=== PATIENT | male | born 1980 | race Asian ===

== ENCOUNTER 2020-06-18 18:03 | Emergency (ER) | payer OTHER ==
[~2020-06-18] VITALS: Ht 172.7 cm; Wt 87.0 kg
[2020-06-18 18:10] VITALS: BP 132/84
[2020-06-18] MEDS ORDERED: HYDROcodone/APAP 5/325MG 1 TAB TABLET PO ONE (19:15)
[2020-06-18] MEDS ORDERED: DIPH,PERTUSS(ACELL),TET VAC/PF 0.5 ML SYRINGE. VAX IM ONE (19:15)
[2020-06-18] MEDS ORDERED: LIDOCAINE 1% Multi-Dose 20 ML VIAL. INJ ONE (19:15)
[2020-06-18] MEDS ORDERED: CEPH-264 PO (19:35)
--- NOTE | 2020-06-18 19:35 | PHYS DOC ---
Past Medical History Past Medical History: No Pertinent History (SULEMAN BASS KENNEL AIDE) Past Surgical History: No Surgical History (SULEMAN BASS KENNEL AIDE) Smoking Status: Never Smoker Alcohol Use: None (SULEMAN BASS KENNEL AIDE) General Adult EDM: Chief Complaint: OTHER COMPLAINTS HPI: HPI: Patient is a 40 year old Male who presents with a fish hook in the right dorsal right forearm. This happened this evening when he was casting and the hook came back and went into his arm. It is a 1 barbed hook. Tetanus shot was in 2018. He rates his pain a 5/10. He denies any past medical history. Patient can make a tight fist and has no weakness in the extremity. No numbness or tingling. Radial pulse strong and present. Cap refill less than 2 seconds. Skin pink warm and dry. (SULEMAN BASS KENNEL AIDE) Review of Systems: Review of Systems: Constitutional: Denies fever or chills. [] Eyes: Denies change in visual acuity. [] HENT: Denies nasal congestion or sore throat. [] Respiratory: Denies cough or shortness of breath. [] Cardiovascular: Denies chest pain or edema. [] GI: Denies abdominal pain, nausea, vomiting, bloody stools or diarrhea. [] : Denies dysuria. [] Musculoskeletal: Denies back pain or joint pain. Dorsal right arm. [] Integument: Denies rash. Fish hook in Dorsal right forearm. [] Neurologic: Denies headache, focal weakness or sensory changes. [] Endocrine: Denies polyuria or polydipsia. [] Lymphatic: Denies swollen glands. [] Psychiatric: Denies depression or anxiety. [] (SULEMAN BASS KENNEL AIDE) Heart Score: Risk Factors: Risk Factors: DM, Current or recent (<one month) smoker, HTN, HLP, family history of CAD, obesity. Risk Scores: Score 0 - 3: 2.5% MACE over next 6 weeks - Discharge Home Score 4 - 6: 20.3% MACE over next 6 weeks - Admit for Clinical Observation Score 7 - 10: 72.7% MACE over next 6 weeks - Early Invasive Strategies (SULEMAN BASS KENNEL AIDE) Current Medications: Current Medications Medications (Trade) Dose Ordered Sig/Cristiano Start Time Stop Time Status Last Admin Dose Admin Acetaminophen/ Hydrocodone Bitart (Lortab 5/325) 1 tab 1X ONCE 06/18/20 19:15 06/18/20 19:16 DC 06/18/20 19:13 1 TAB Diphtheria/ Tetanus/Acell Pertussis (ADACEL TDap SYRINGE) 0.5 ml ONCE ONCE 06/18/20 19:15 06/18/20 19:16 DC Lidocaine HCl (Lidocaine 1% 20ml Vial) 20 ml 1X ONCE 06/18/20 19:15 06/18/20 19:16 DC 06/18/20 19:13 20 ML (SULEMAN BASS APRN) Allergies: Allergies: Allergies Coded Allergies Type Severity Reaction Last Updated Verified No Known Drug Allergies 06/18/20 No (SULEMAN BASS APRN) Physical Exam: PE: Constitutional: Well developed, well nourished, no acute distress, non-toxic appearance. [] HENT: Normocephalic, atraumatic, bilateral external ears normal, oropharynx moist, no oral exudates, nose normal. [] Eyes: PERRLA, EOMI, conjunctiva normal, no discharge. [] Neck: Normal range of motion, no tenderness, supple, no stridor. [] Cardiovascular:Heart rate regular rhythm, no murmur [] Lungs & Thorax: Bilateral breath sounds clear to auscultation [] Abdomen: Bowel sounds normal, soft, no tenderness, no masses, no pulsatile masses. [] Skin: Warm, dry, no erythema, no rash. Fish hook in Right forearm. [] Back: No tenderness, no CVA tenderness. [] Extremities: Dorsal right forearm tenderness, no cyanosis, no clubbing, ROM intact, no edema. [] Neurologic: Alert and oriented X 3, normal motor function, normal sensory function, no focal deficits noted. [] Psychologic: Affect normal, judgement normal, mood normal. [] (SULEMAN BASS APRN) Current Patient Data: Vital Signs: Vital Signs Date Time Temp Pulse Resp B/P (MAP) Pulse Ox O2 Delivery O2 Flow Rate FiO2 06/18/20 19:13 14 98 Room Air 06/18/20 18:10 98.7 95 132/84 (100) 98.7 (SULEMAN BASS APRN) EKG: EKG: [] (SULEMAN BASS APRN) Radiology/Procedures: Radiology/Procedures: [] (SULEMAN BASS APRN) Course & Med Decision Making: Course & Med Decision Making Pertinent Labs and Imaging studies reviewed. (See chart for details) See HPI. Area is numbed with Lidocaine 1%. Hook was removed. Patient tolerated well. [] (SULEMAN BASS APRN) Dragon Disclaimer: Dragon Disclaimer: This electronic medical record was generated, in whole or in part, using a voice recognition dictation system. (SULEMAN BASS APRN) Departure Departure Impression: Primary Impression: Fish hook injury of forearm Qualified Codes: S59.911A - Unspecified injury of right forearm, initial encounter Disposition: HOME, SELF-CARE Condition: STABLE Referrals: GLENROY RICCI (PCP) Patient Instructions: Fish Hook Removal Additional Instructions: Follow up with primary care provider. Keep area clean and dry. Scripts Cephalexin (KEFLEX) 500 Mg Capsule 1 CAP PO TID for 10 Days, #30 CAP 0 Refills Prov: SULEMAN BASS APRN 06/18/20 Justicifation of Admission Dx: Justifications for Admission: Justification of Admission Dx: N/A (SULEMAN BASS APRN) Attending Signature Attending Signature I was personally available for consult in the emergency department. I have reviewed the chart and agree with the documentation as recorded by the NOHEMI including the assessment, treatment plan and disposition. (VAIBHAV ALEJO DO) SULEMAN BASS APRN Jun 18, 2020 19:35 VAIBHAV ALEJO DO Jun 18, 2020 20:12
== END 2020-06-18 19:45 | disposition home or self-care (01) ==
LOC: ER 18:03
DX: S50.851A Superficial foreign body of right forearm, initial encounter (principal); X58.XXXA Exposure to other specified factors, initial encounter; Y93.89 Activity, other specified; Y92.89 Other specified places as the place of occurrence of the external cause; Y99.8 Other external cause status
CPT/HCPCS: 96372; 99284; J3490